=== PATIENT | male | born 1970 | race Caucasian/White ===

== ENCOUNTER → 2021-11-12 | Outpatient (CLI) | payer OTHER ==
--- NOTE | 2021-11-12 12:11 | XR ---
EXAMINATION TYPE: XR elbow complete RT DATE OF EXAM: 11/12/2021 COMPARISON: None HISTORY: Pain TECHNIQUE: 3 view right elbow FINDINGS: Anterior fat pad is normal. No elevation of posterior fat pad is evident. Some spurring is noted at the elbow including the medial humeral condyle and olecranon. No acute fracture or dislocation is evident. Joint spaces appear preserved. IMPRESSION: 1. Mild degenerative changes. No suspicious acute or subacute findings.
== END | disposition home or self-care (01) ==
LOC: RADXRMAIN 11:48
PROVIDERS: ATTEND Emergency Medicine
DX: M19.021 Primary osteoarthritis, right elbow (principal)